=== PATIENT | male | born 1995 | race Caucasian/White ===

== ENCOUNTER 2019-02-22 05:44 | Day surgery (SDC) | payer OTHER | END 2019-02-22 08:40 | disposition home or self-care (01) | LOC: AMB-ENDOS 05:44 → EDBD 13:30 | DX: K44.9 Diaphragmatic hernia without obstruction or gangrene (principal) ==

== ENCOUNTER 2019-03-13 07:59 | Outpatient (CLI) | payer OTHER | END 2019-03-13 09:00 | disposition home or self-care (01) | LOC: NUCLEAR 07:59 | DX: K31.84 Gastroparesis (principal) | CPT/HCPCS: 78264; A9541 ==